=== PATIENT | female | born 1960 | race Two or more races ===

== ENCOUNTER 2016-11-02 12:33 | Emergency (ER) | payer BC ==
[~2016-11-02] VITALS: Ht 154.9 cm; Wt 79.4 kg
[~2016-11-02 12:33] MED LIST: ANTIBIOTIC; IBUPROFEN PO; PREDNISONE PO; PROPRANOLOL PO
[2016-11-02 13:18] LABS: URINE SOURCE CLEAN CATCH
[2016-11-02 13:23] LABS: URINE APPEARANCE CLEAR; URINE BILIRUBIN NEG (NEG); URINE BLOOD NEG (NEG); URINE COLOR YELLOW; URINE GLUCOSE NEG (NEG); URINE KETONE NEG (NEG); URINE LEUKOCYTE ESTERASE NEG (NEG); URINE NITRATE NEG (NEG); URINE PROTEIN NEG (NEG); URINE SPECIFIC GRAVITY 1.009 (1.003-1.035); URINE UROBILINOGEN 0.2 MG/DL (NEG)
[2016-11-02 13:27] LABS: CULTURE INDICATED? NO
== END 2016-11-02 14:00 | disposition home or self-care (01) ==
LOC: CED 12:33 → CFTX 12:33
PROVIDERS: Nurse Practitioner
DX: M54.5 Low back pain (principal); X50.9XXA Other and unspecified overexertion or strenuous movements or postures, initial encounter; Y92.009 Unspecified place in unspecified non-institutional (private) residence as the place of occurrence of the external cause
CPT/HCPCS: 81003; 96372; 99283; J1885